=== PATIENT | female | born 1975 | race Caucasian/White ===

== ENCOUNTER 2017-05-27 10:44 | Inpatient (IN) | payer OTHER ==
[~2017-05-27] VITALS: Ht 177.8 cm; Wt 70.3 kg
[~2017-05-27 10:44] MED LIST: BACLOFEN 10MG T10 M1 PO; CIPRO250 M1; CLONAZEPAM 1 MG1 M1; CYCLOBENZAPRINE; CYMBALTA20 MG; DEPAKOTE250 MG; EFFEXOR 5050 MG/1 T1; ESTRACE0.5 MG; FLOMAX PO; HYDROXYZINE HCL10 M1 PO; OMEPRAZOLE 20 M20 M1; OXYCONTIN10 M1 PO; OXYCONTIN30 MG PO; PERCOCET 5-3251 EACH PO; PHENERGAN 25 MG25 M1 PO; PROMETHAZINE12.5 M1; REMERON15 MG PO; SEROQUEL 25 MG25 MG PO; SEROQUEL200 MG PO; XANAX 0.5 MG0.5 MG PO; ZOFRAN4 MG
[2017-05-27 10:48] VITALS: BP 125/85
[2017-05-27 11:12] LABS: URINE BILIRUBIN NEGATIVE (Negative); URINE BLOOD 2+ (Negative); URINE CLARITY CLEAR; URINE COLOR YELLOW; URINE GLUCOSE-RANDOM* NEGATIVE (Negative); URINE KETONES NEGATIVE (Negative); URINE LEUKOCYTES NEGATIVE (Negative); URINE NITRITE NEGATIVE (Negative); URINE PROTEIN (DIPSTICK) NEGATIVE (Negative); URINE UROBILINOGEN 0.2 E.U./dl (0.2-1.0)
[2017-05-27 11:18] LABS: BACTERIA 1-9 Few /HPF (None Seen); CASTS None Seen /LPF (None Seen); CRYSTALS None Seen /LPF (None Seen); SQUAMOUS 0-3 Few /LPF (0-3); URINE RBC 3-10 Few /HPF (0-2); URINE WBC 0-5 Rare /HPF (0-5)
[2017-05-27 11:21] LABS: HEMATOCRIT 44.7 % (37.0-47.0); HEMOGLOBIN 15.2 gm/dL (12.0-15.0); MCH 32.6 pg (26.0-34.0); MCV 95.9 fL (80.0-100.0); RBC 4.66 mil/uL (4.20-5.00); RDW 12.7 % (10.5-14.5); WBC 4.3 thou/uL (4.0-11.0)
[2017-05-27 11:35] LABS: CALCIUM 9.3 mg/dL (8.5-10.1); CREATININE 0.8 mg/dL (0.6-1.0); POTASSIUM 4.3 mmol/L (3.5-5.1)
[2017-05-27 11:40] LABS: ALBUMIN 3.7 g/dL (3.4-5.0); TOTAL BILIRUBIN 0.8 mg/dL (<0.1-1.0); TOTAL PROTEIN 7.3 g/dL (6.4-8.2)
[2017-05-27] MEDS ORDERED: EFFEXOR XR75 MG PO (12:06)
[2017-05-27 17:56] VITALS: BP 125/63
[2017-05-27 18:10] VITALS: BP 119/72
[2017-05-27 18:30] VITALS: BP 123/64
[2017-05-27 19:12] VITALS: BP 114/66
[2017-05-27] MEDS ORDERED: CLONAZEPAM 1 MG1 M1 PO (20:38)
[2017-05-28 03:15] VITALS: BP 109/64
[2017-05-28 06:44] LABS: HEMATOCRIT 38.3 % (37.0-47.0); MCH 32.9 pg (26.0-34.0); MCHC 33.7 g/dL (28.0-37.0); MCV 97.4 fL (80.0-100.0); RBC 3.93 mil/uL (4.20-5.00); RDW 12.8 % (10.5-14.5); WBC 3.7 thou/uL (4.0-11.0)
[2017-05-28 06:49] LABS: HEMOGLOBIN 12.9 gm/dL (12.0-15.0)
[2017-05-28 06:57] LABS: CALCIUM 8.8 mg/dL (8.5-10.1); CREATININE 1.1 mg/dL (0.6-1.0)
[2017-05-28 07:14] VITALS: BP 93/52
[2017-05-28 15:30] VITALS: BP 115/60
[2017-05-28 20:00] VITALS: BP 97/56
[2017-05-29 04:04] VITALS: BP 99/56
[2017-05-29 07:20] VITALS: BP 92/52
[2017-05-29 08:24] VITALS: BP 99/56
[2017-05-29 15:30] VITALS: BP 117/64
[2017-05-29 20:00] VITALS: BP 112/64
[2017-05-30 05:25] VITALS: BP 167/92
[2017-05-30 05:26] VITALS: BP 107/65
[2017-05-30 06:21] LABS: CALCIUM 8.2 mg/dL (8.5-10.1); CREATININE 0.9 mg/dL (0.6-1.0); POTASSIUM 4.7 mmol/L (3.5-5.1)
[2017-05-30 08:39] VITALS: BP 107/65
[2017-05-30 08:46] VITALS: BP 108/72
[2017-05-30 20:00] VITALS: BP 116/67
[2017-05-31 04:09] VITALS: BP 99/49
[2017-05-31 08:05] VITALS: BP 128/78
[2017-05-31 15:00] VITALS: BP 109/54
[2017-05-31 17:20] VITALS: BP 111/60
[2017-05-31 19:05] VITALS: BP 106/62
[2017-06-01 06:13] VITALS: BP 104/60
[2017-06-01 11:03] VITALS: BP 98/56
[2017-06-01 12:12] LABS: HEMATOCRIT 37.2 % (37.0-47.0); HEMOGLOBIN 12.9 gm/dL (12.0-15.0); MCH 33.1 pg (26.0-34.0); MCHC 34.6 g/dL (28.0-37.0); MCV 95.7 fL (80.0-100.0); RBC 3.89 mil/uL (4.20-5.00); RDW 12.4 % (10.5-14.5); WBC 3.2 thou/uL (4.0-11.0)
[2017-06-01 12:22] LABS: CALCIUM 9.3 mg/dL (8.5-10.1); MAGNESIUM 1.8 mg/dL (1.8-2.4); POTASSIUM 4.7 mmol/L (3.5-5.1)
[2017-06-01 14:55] VITALS: BP 97/60
[2017-06-01 20:30] VITALS: BP 101/49
[2017-06-02 05:00] VITALS: BP 93/46
[2017-06-02 06:22] LABS: HEMATOCRIT 37.6 % (37.0-47.0); HEMOGLOBIN 12.6 gm/dL (12.0-15.0); MCH 32.4 pg (26.0-34.0); MCHC 33.5 g/dL (28.0-37.0); MCV 96.8 fL (80.0-100.0); RBC 3.89 mil/uL (4.20-5.00); RDW 12.5 % (10.5-14.5); WBC 3.8 thou/uL (4.0-11.0)
[2017-06-02 06:34] LABS: CALCIUM 8.9 mg/dL (8.5-10.1); CREATININE 1.1 mg/dL (0.6-1.0); MAGNESIUM 1.7 mg/dL (1.8-2.4); POTASSIUM 4.7 mmol/L (3.5-5.1)
[2017-06-02 08:00] VITALS: BP 95/50
[2017-06-02] MEDS ORDERED: FLOMAX0.4 MG PO (15:59)
[2017-06-02 16:00] VITALS: BP 95/52
[2017-06-02] MEDS ORDERED: PERCOCET PO (16:00)
[2017-06-02 16:30] VITALS: BP 95/52
[2017-06-02 19:05] VITALS: BP 109/59
[2017-06-03 03:55] VITALS: BP 93/51
[2017-06-03 06:06] LABS: HEMATOCRIT 35.8 % (37.0-47.0); HEMOGLOBIN 12.1 gm/dL (12.0-15.0); MCH 32.7 pg (26.0-34.0); MCHC 33.7 g/dL (28.0-37.0); MCV 96.9 fL (80.0-100.0); RBC 3.7 mil/uL (4.20-5.00); RDW 12.8 % (10.5-14.5); WBC 3.6 thou/uL (4.0-11.0)
[2017-06-03 06:24] LABS: CALCIUM 8.7 mg/dL (8.5-10.1); CREATININE 1.2 mg/dL (0.6-1.0); POTASSIUM 5.1 mmol/L (3.5-5.1)
[2017-06-03 15:00] VITALS: BP 91/42
[2017-06-03 19:09] VITALS: BP 95/54
[2017-06-04 03:34] VITALS: BP 99/54
[2017-06-04 05:48] LABS: HEMATOCRIT 34.5 % (37.0-47.0); HEMOGLOBIN 11.7 gm/dL (12.0-15.0); MCH 33.1 pg (26.0-34.0); MCHC 33.9 g/dL (28.0-37.0); MCV 97.6 fL (80.0-100.0); RBC 3.53 mil/uL (4.20-5.00); RDW 12.8 % (10.5-14.5); WBC 4.1 thou/uL (4.0-11.0)
[2017-06-04 06:01] LABS: CALCIUM 8.5 mg/dL (8.5-10.1); CREATININE 1.2 mg/dL (0.6-1.0); MAGNESIUM 1.8 mg/dL (1.8-2.4); POTASSIUM 4.3 mmol/L (3.5-5.1)
[2017-06-04 06:35] VITALS: BP 98/61
[2017-06-04 07:15] VITALS: BP 94/53
[2017-06-04 15:30] VITALS: BP 95/52
== END 2017-06-04 17:09 | DRG 694 ==
LOC: ER 10:44 → 4E 14:43 → EROBS 14:43 → 4E 18:08
PROVIDERS: Hospitalist; Internal Medicine; Physician Assistant; Radiology Vascular & Interventional Radiology
PROC: 0T9430Z Drainage of Left Kidney Pelvis with Drainage Device, Percutaneous Approach (ICD-10-PCS; principal; 2017-05-29)
DX: N13.2 Hydronephrosis with renal and ureteral calculous obstruction (principal); J98.11 Atelectasis; F41.9 Anxiety disorder, unspecified; F31.9 Bipolar disorder, unspecified; R33.9 Retention of urine, unspecified; F43.10 Post-traumatic stress disorder, unspecified; Z90.710 Acquired absence of both cervix and uterus; Z79.899 Other long term (current) drug therapy; Z88.1 Allergy status to other antibiotic agents; Z88.2 Allergy status to sulfonamides; Z88.8 Allergy status to other drugs, medicaments and biological substances
CPT/HCPCS: 10084

== ENCOUNTER 2017-06-22 19:14 | Inpatient (IN) | payer OTHER ==
[~2017-06-22] VITALS: Ht 177.8 cm; Wt 75.8 kg
--- NOTE | ~2017-06-22 | HC ---
[facility] [place] [address] CONSULTATION Name: LORENZO VICKERS Room #: 402-P [facility] IN ..#: [id number] Admission: 06/22/17 Attend Phys: Migue Wilkerson Discharge: 06/28/17 Date of : 75 Report #: [id number] THIS REPORT FOR: //name// CC: DASH physician/PCP Anthony Morelos DATE OF SERVICE: 06/23/2017 HISTORY OF PRESENT ILLNESS: The patient is a 41-year-old female who presents with acute onset of left flank pain. She states the pain has been there for quite some time, but over the past week, it has gotten significantly worse to the point that she was not able to tolerate it at home despite taking oral pain medications. She states she has had multiple stones in the past, none of which would pass spontaneously, all of which required intervention. She had a left nephrostomy tube placed several weeks ago for a left hydronephrosis. She states she has had some sort of left ureteral surgery, but is unsure of what type of procedure she had done. She has also had dysuria, urgency or frequency. She states she voids every hour with nocturia x 3. She has some hesitancy and dribbling. She has not had any fever or chills. She has not noted any hematuria. She felt that her nephrostomy tube was draining. PAST MEDICAL HISTORY: Medical illnesses, bipolar disorder, history of stones, history of recurrent urinary tract infections. ALLERGIES: CLINDAMYCIN, REGLAN, AUGMENTIN, SULFA, LORTAB, DEMEROL, COMPAZINE. FAMILY HISTORY, SOCIAL HISTORY AND REVIEW OF SYSTEMS: Per the chart. PHYSICAL EXAMINATION: ABDOMEN: Soft. There is no left flank tenderness. She has a left nephrostomy tube in place. LABORATORY DATA: Her urine shows 3-10 red cells, 16-25 white cells, moderate bacteria. She has negative nitrites. Her white count is 6.5, creatinine is 0.8. ASSESSMENT AND PLAN: 1. Left flank pain. We will plan to get a left antegrade nephrostogram to see if the patient has any obstruction. If she does not have any obstruction, she would like to have her nephrostomy tube removed. 2. Recurrent urinary tract infection. The patient has a urine culture pending. She is on ceftriaxone pending the results of the culture. [address] [address] CONSULTATION Name: LORENZO VICKERS Room #: 402-P [facility] IN M.R.#: [id number] Admission: 06/22/17 Attend Phys: Migue Wilkerson Discharge: 06/28/17 Date of : 75 Report #: [id number] 3. Incomplete bladder emptying. We will check a postvoid BVI. The patient is on Flomax 0.4 mg daily. <ELECTRONICALLY SIGNED> By: Toño Pickering MD 08/24/17 0943 0839 1 Toño Pickering MD /isabella
[~2017-06-22 19:14] MED LIST changes: +CLONAZEPAM 1 MG1 M1 PO; +EFFEXOR XR75 MG PO; +FLOMAX0.4 MG PO; +PERCOCET PO
[2017-06-22 19:42] LABS: URINE BILIRUBIN NEGATIVE (Negative); URINE BLOOD 2+ (Negative); URINE CLARITY SL CLOUDY; URINE COLOR YELLOW; URINE GLUCOSE-RANDOM* NEGATIVE (Negative); URINE KETONES NEGATIVE (Negative); URINE NITRITE-REFLEX NEGATIVE (Negative); URINE PROTEIN (DIPSTICK) NEGATIVE (Negative); URINE SPECIFIC GRAVITY 1.025 (1.005-1.035); URINE UROBILINOGEN 0.2 E.U./dl (0.2-1.0)
[2017-06-22 19:48] LABS: URINE LEUKOCYTES-REFLEX TRACE (Negative)
[2017-06-22 20:06] VITALS: BP 119/62
[2017-06-22 20:17] LABS: SQUAMOUS 4-10 Moderate /LPF (0-3)
[2017-06-22 20:18] LABS: URINE RBC 3-10 Few /HPF (0-2)
[2017-06-22 20:19] LABS: CASTS None Seen /LPF (None Seen); CRYSTALS None Seen /LPF (None Seen); MUCUS 0-3 Light strn/LPF (None Seen)
[2017-06-22 20:47] LABS: ABSOLUTE NEUTROPHILS 2.8 thou/uL (1.4-8.2); BASOPHILS 0.7 % (0.0-2.0); HEMATOCRIT 42.8 % (37.0-47.0); HEMOGLOBIN 14.3 gm/dL (12.0-15.0); MCHC 33.4 g/dL (28.0-37.0); MCV 95.8 fL (80.0-100.0); MONOCYTES 8.3 % (1.0-8.0); PLATELET COUNT 104 thou/uL (150-400); RBC 4.47 mil/uL (4.20-5.00); RDW 13.3 % (10.5-14.5); WBC 6.5 thou/uL (4.0-11.0)
[2017-06-22 20:52] LABS: CALCIUM 8.7 mg/dL (8.5-10.1); CREATININE 0.8 mg/dL (0.6-1.0); POTASSIUM 3.8 mmol/L (3.5-5.1)
[2017-06-22 20:58] LABS: ALBUMIN 3.5 g/dL (3.4-5.0); TOTAL BILIRUBIN 0.4 mg/dL (<0.1-1.0)
[2017-06-22 22:58] VITALS: BP 119/62
[2017-06-22 23:04] VITALS: BP 119/62
[2017-06-22 23:30] VITALS: BP 116/65
[2017-06-23 03:50] LABS: CALCIUM 8.6 mg/dL (8.5-10.1); CREATININE 0.9 mg/dL (0.6-1.0)
[2017-06-23 04:24] VITALS: BP 94/55
[2017-06-23 05:19] LABS: HEMATOCRIT 38.2 % (37.0-47.0); HEMOGLOBIN 13.1 gm/dL (12.0-15.0); MCH 32.8 pg (26.0-34.0); MCHC 34.3 g/dL (28.0-37.0); MCV 95.7 fL (80.0-100.0); RBC 3.99 mil/uL (4.20-5.00); RDW 13.4 % (10.5-14.5); WBC 7.7 thou/uL (4.0-11.0)
[2017-06-23 16:46] VITALS: BP 101/67
[2017-06-23 19:15] VITALS: BP 104/46
[2017-06-24 04:09] VITALS: BP 111/49
[2017-06-24 05:05] LABS: HEMATOCRIT 37.1 % (37.0-47.0); HEMOGLOBIN 12.5 gm/dL (12.0-15.0); MCHC 33.7 g/dL (28.0-37.0); RBC 3.91 mil/uL (4.20-5.00); RDW 13.1 % (10.5-14.5); WBC 6.4 thou/uL (4.0-11.0)
[2017-06-24 05:17] LABS: ALBUMIN 3.4 g/dL (3.4-5.0); CALCIUM 8.8 mg/dL (8.5-10.1); CREATININE 0.8 mg/dL (0.6-1.0); PHOSPHORUS 4.8 mg/dL (2.5-4.9); POTASSIUM 3.8 mmol/L (3.5-5.1)
[2017-06-24 07:17] VITALS: BP 111/49
[2017-06-24 09:36] VITALS: BP 109/41
[2017-06-24 15:27] VITALS: BP 111/62
[2017-06-24 20:27] VITALS: BP 115/49
[2017-06-25 04:07] VITALS: BP 98/34
[2017-06-25 09:46] VITALS: BP 116/68
[2017-06-25 11:03] VITALS: BP 116/68
[2017-06-25 17:45] VITALS: BP 116/61
[2017-06-25 19:11] VITALS: BP 100/44
[2017-06-26] VITALS (9 sets, daily range): BP systolic 78–97; BP diastolic 40–57
[2017-06-27 04:34] VITALS: BP 110/44
[2017-06-27] MEDS ORDERED: CEFDINIR300 MG PO (07:26)
[2017-06-27] MEDS ORDERED: CLONAZEPAM 1 MG1 M1 PO (07:27)
[2017-06-27] MEDS ORDERED: OXYCODONE HCL10 MG PO (07:27)
[2017-06-27] MEDS ORDERED: SEROQUEL 25 MG25 MG PO (07:27)
[2017-06-27 08:43] VITALS: BP 95/57
[2017-06-27 16:42] VITALS: BP 111/66
[2017-06-27 19:22] VITALS: BP 103/54
[2017-06-28 05:00] VITALS: BP 108/53
[2017-06-28 07:11] VITALS: BP 95/50
[2017-06-28 15:09] VITALS: BP 101/53
== END 2017-06-28 18:00 | DRG 689 ==
LOC: ER 19:14 → 4N 22:05 → EROBS 22:05 → 4N 23:22
PROVIDERS: Emergency Medicine; Hospitalist; Nurse Practitioner Family
PROC: BT121ZZ Fluoroscopy of Left Kidney using Low Osmolar Contrast (ICD-10-PCS; principal; 2017-06-24)
PROC: 0TP5X0Z Removal of Drainage Device from Kidney, External Approach (ICD-10-PCS; 2017-06-26)
DX: N12 Tubulo-interstitial nephritis, not specified as acute or chronic (principal); K85.90 Acute pancreatitis without necrosis or infection, unspecified; F41.9 Anxiety disorder, unspecified; F31.9 Bipolar disorder, unspecified; G89.4 Chronic pain syndrome; F43.10 Post-traumatic stress disorder, unspecified; M19.90 Unspecified osteoarthritis, unspecified site; M54.30 Sciatica, unspecified side; Z79.899 Other long term (current) drug therapy; Z87.442 Personal history of urinary calculi; Z88.1 Allergy status to other antibiotic agents; Z90.710 Acquired absence of both cervix and uterus; Z88.2 Allergy status to sulfonamides; Z88.8 Allergy status to other drugs, medicaments and biological substances; Z86.718 Personal history of other venous thrombosis and embolism
CPT/HCPCS: 10091

== ENCOUNTER 2017-08-03 03:22 | Emergency (ER) | payer OTHER ==
[~2017-08-03] VITALS: Ht 180.3 cm; Wt 71.7 kg
[~2017-08-03 03:22] MED LIST changes: +CEFDINIR300 MG PO; +OXYCODONE HCL10 MG PO
[2017-08-03 04:04] LABS: ABSOLUTE NEUTROPHILS 3.5 thou/uL (1.4-8.2); BASOPHILS 0.7 % (0.0-2.0); EOSINOPHILS 1.8 % (0.0-3.0); HEMATOCRIT 37.8 % (37.0-47.0); HEMOGLOBIN 13.1 gm/dL (12.0-15.0); LYMPHOCYTES 40.3 % (24.0-44.0); MCH 33.1 pg (26.0-34.0); MCHC 34.6 g/dL (28.0-37.0); MCV 95.8 fL (80.0-100.0); MONOCYTES 5.8 % (1.0-8.0); PLATELET COUNT 181 thou/uL (150-400); POLYS 51.4 % (36.0-66.0); RBC 3.95 mil/uL (4.20-5.00); WBC 6.8 thou/uL (4.0-11.0)
[2017-08-03 04:05] LABS: URINE BILIRUBIN NEGATIVE (Negative); URINE BLOOD NEGATIVE (Negative); URINE CLARITY CLEAR; URINE COLOR YELLOW; URINE GLUCOSE-RANDOM* NEGATIVE (Negative); URINE KETONES NEGATIVE (Negative); URINE LEUKOCYTES-REFLEX NEGATIVE (Negative); URINE NITRITE-REFLEX NEGATIVE (Negative); URINE PROTEIN (DIPSTICK) NEGATIVE (Negative); URINE UROBILINOGEN 0.2 E.U./dl (0.2-1.0)
[2017-08-03 04:48] LABS: CALCIUM 8.6 mg/dL (8.5-10.1); CREATININE 0.9 mg/dL (0.6-1.0); POTASSIUM 3.9 mmol/L (3.5-5.1)
[2017-08-03] MEDS ORDERED: ZOFRAN ODT4 MG PO (05:32)
[2017-08-03] MEDS ORDERED: MOBIC15 MG PO (05:33)
[2017-08-03 07:10] VITALS: BP 105/65
== END 2017-08-03 07:12 | disposition home or self-care (01) ==
LOC: ER 03:22
PROVIDERS: Emergency Medicine
DX: R10.9 Unspecified abdominal pain (principal); R11.2 Nausea with vomiting, unspecified; M79.7 Fibromyalgia; Z86.718 Personal history of other venous thrombosis and embolism; Z88.1 Allergy status to other antibiotic agents; Z88.2 Allergy status to sulfonamides; Z88.5 Allergy status to narcotic agent

== ENCOUNTER 2017-11-09 13:14 | Emergency (ER) | payer OTHER ==
[~2017-11-09] VITALS: Ht 177.8 cm; Wt 68.0 kg
[~2017-11-09 13:14] MED LIST changes: +MOBIC15 MG PO; +ZOFRAN ODT4 MG PO
[2017-11-09 13:46] LABS: ABSOLUTE NEUTROPHILS 8.8 thou/uL (1.4-8.2); BASOPHILS 0.5 % (0.0-2.0); EOSINOPHILS 0.4 % (0.0-3.0); HEMATOCRIT 44.4 % (37.0-47.0); HEMOGLOBIN 15.4 gm/dL (12.0-15.0); LYMPHOCYTES 17.8 % (24.0-44.0); MCH 32.3 pg (26.0-34.0); MCHC 34.8 g/dL (28.0-37.0); MCV 92.8 fL (80.0-100.0); MONOCYTES 4.8 % (1.0-8.0); PLATELET COUNT 213 thou/uL (150-400); POLYS 76.5 % (36.0-66.0); RBC 4.78 mil/uL (4.20-5.00); RDW 13.4 % (10.5-14.5); WBC 11.5 thou/uL (4.0-11.0)
[2017-11-09 13:56] LABS: CALCIUM 10.1 mg/dL (8.5-10.1); POTASSIUM 3.2 mmol/L (3.5-5.1)
[2017-11-09 14:02] LABS: ALBUMIN 4.3 g/dL (3.4-5.0); DIRECT BILIRUBIN 0.2 mg/dL (<0.1-0.3); TOTAL BILIRUBIN 0.8 mg/dL (<0.1-1.0); TOTAL PROTEIN 8.2 g/dL (6.4-8.2)
[2017-11-09] MEDS ORDERED: POTASSIUM20 PO (14:26)
== END 2017-11-09 15:15 | disposition home or self-care (01) ==
LOC: ER 13:14
PROVIDERS: Emergency Medicine
DX: F12.988 Cannabis use, unspecified with other cannabis-induced disorder (principal); E87.6 Hypokalemia; R11.2 Nausea with vomiting, unspecified; R10.9 Unspecified abdominal pain

== ENCOUNTER 2017-11-11 12:55 | Emergency (ER) | payer OTHER ==
[~2017-11-11] VITALS: Ht 177.8 cm; Wt 72.6 kg
[~2017-11-11 12:55] MED LIST changes: +POTASSIUM20 PO
[2017-11-11 14:00] LABS: URINE BLOOD 2+ (Negative); URINE CLARITY CLEAR; URINE COLOR YELLOW; URINE GLUCOSE-RANDOM* NEGATIVE (Negative); URINE KETONES 1+ (Negative); URINE LEUKOCYTES-REFLEX NEGATIVE (Negative); URINE NITRITE-REFLEX NEGATIVE (Negative); URINE PROTEIN (DIPSTICK) NEGATIVE (Negative); URINE SPECIFIC GRAVITY 1.025 (1.005-1.035)
[2017-11-11 14:01] LABS: ICTOTEST (BILI CONFIRMATORY) Negative (Negative); URINE BILIRUBIN NEGATIVE (Negative)
[2017-11-11 14:01] LABS: BASOPHILS 0.5 % (0.0-2.0); EOSINOPHILS 0.2 % (0.0-3.0); HEMATOCRIT 43.7 % (37.0-47.0); LYMPHOCYTES 24.4 % (24.0-44.0); MCH 31.8 pg (26.0-34.0); MCHC 34.4 g/dL (28.0-37.0); MCV 92.4 fL (80.0-100.0); MONOCYTES 6.3 % (1.0-8.0); PLATELET COUNT 184 thou/uL (150-400); POLYS 68.6 % (36.0-66.0); RBC 4.73 mil/uL (4.20-5.00); RDW 13.4 % (10.5-14.5); WBC 5.8 thou/uL (4.0-11.0)
[2017-11-11 14:09] LABS: SQUAMOUS 4-10 Moderate /LPF (0-3)
[2017-11-11 14:10] LABS: BACTERIA-REFLEX 1-9 Few /HPF (None Seen); CASTS None Seen /LPF (None Seen); CRYSTALS None Seen /LPF (None Seen); URINE RBC 3-10 Few /HPF (0-2); URINE WBC-REFLEX 0-5 Rare /HPF (0-5)
[2017-11-11 14:14] LABS: CALCIUM 9.5 mg/dL (8.5-10.1); CREATININE 0.9 mg/dL (0.6-1.0); POTASSIUM 3.5 mmol/L (3.5-5.1)
[2017-11-11 14:16] LABS: AMP/METHAMP Negative (Negative); BARBITURATES Negative (Negative); BENZODIAZEPINES POSITIVE (Negative); COCAINE Negative (Negative); METHADONE Negative (Negative); OPIATES Negative (Negative); PCP Negative (Negative)
[2017-11-11 14:20] LABS: TOTAL BILIRUBIN 1.2 mg/dL (<0.1-1.0); TOTAL PROTEIN 7.8 g/dL (6.4-8.2)
[2017-11-11] MEDS ORDERED: TRAMADOL 50 MG50 MG PO (15:55)
[2017-11-11] MEDS ORDERED: ONDANSETRON HCL4 M2 PO (15:55)
[2017-11-11] MEDS ORDERED: XANAX1 MG PO ×2 (21:32→21:49)
[2017-11-11] MEDS ORDERED: OXYCONTIN15 MG PO (21:34)
== END 2017-11-11 17:20 | disposition home or self-care (01) ==
LOC: ER 12:55
PROVIDERS: Nurse Practitioner Family
DX: R10.9 Unspecified abdominal pain (principal); R11.2 Nausea with vomiting, unspecified; F41.9 Anxiety disorder, unspecified; F31.9 Bipolar disorder, unspecified; M79.7 Fibromyalgia; M54.30 Sciatica, unspecified side; Z86.718 Personal history of other venous thrombosis and embolism; Z88.1 Allergy status to other antibiotic agents; Z88.2 Allergy status to sulfonamides; Z88.8 Allergy status to other drugs, medicaments and biological substances

== ENCOUNTER 2017-11-11 18:41 | Inpatient (IN) | payer OTHER ==
[~2017-11-11] VITALS: Ht 177.8 cm; Wt 71.3 kg
--- NOTE | ~2017-11-11 | HC ---
[facility] [place] [address] [place] [address] CONSULTATION Name: LORENZO VICKERS Room #: 426-P [facility] IN M.R.#: [id number] Admission: 11/11/17 Attend Phys: Anthony Morelos MD Discharge: 11/15/17 Date of : 75 Report #: [id number] THIS REPORT FOR: //name// CC: DASH physician/PCP Anthony Morelos CHIEF COMPLAINT: Left flank pain. HISTORY OF PRESENT ILLNESS: The patient is a 42-year-old woman who is being seen today at the request of Dr. Duff for evaluation and management of left flank pain. She has undergone left renal ureteral surgery in the distant past and has chronic left-sided dilation. She presents with a 2-week history of left flank pain. She had a similar episode earlier this year and had a nephrostomy tube placed. Pain was still present and nephrostomy, nephrostogram documented patency. ALLERGIES: INCLUDE CLINDAMYCIN, REGLAN, AUGMENTIN, SULFA, HYDROCODONE, DEMEROL, COMPAZINE. ILLNESSES: Include abdominal pain, bipolar disorder, cannabis hyperemesis syndrome, difficulty voiding, fibromyalgia, chronic pain syndrome, anxiety. PAST SURGICAL HISTORY: Includes a left kidney reconstructive surgery, left nephrostomy tube placement. HOME MEDICATIONS: Include tramadol, potassium chloride, Seroquel, tamsulosin, Zofran. SOCIAL HISTORY: Nonsmoker. She does not drink. REVIEW OF SYSTEMS: She denies shortness of breath or chest pain. Reports some difficulties voiding. PHYSICAL EXAMINATION: GENERAL: She is sitting up in bed. VITAL SIGNS: Temperature is 36.6, pulse 70, respirations 16, blood pressure 97/73. ABDOMEN: Soft without masses. No peritoneal signs, although she does complain of pain with deep palpation. LABORATORY DATA: White count 5.4 thousand, hemoglobin 13.8, hematocrit 40.8, platelets are 171,000. Sodium 143, potassium 3.2, chloride 107, CO2 of 30, BUN 12, creatinine 1.0, glucose 78, calcium is 9.2. CT scan shows a mild left renal pelvocaliectasis with an unchanged left proximal ureteral stone at L4. Of note, the ureter was also dilated below this stone. She had a pelvocaliectasis dates back to 2011. [address] [address] CONSULTATION Name: LORENZO VICKERS Room #: 426-P [facility] IN [facility].#: [id number] Admission: 11/11/17 Attend Phys: Anthony Morelos MD Discharge: 11/15/17 Date of : 75 Report #: [id number] IMPRESSION: Left flank pain, etiology is uncertain. PLAN: I would recommend a Lasix renal scan. I would not recommend any active surgical intervention at the present time. We will reassess after Lasix renal scan. <ELECTRONICALLY SIGNED> By: Ludwin Dunaway MD 11/16/17 0847 [id number] MD cornelio Morales
[~2017-11-11 18:41] MED LIST changes: +ONDANSETRON HCL4 M2 PO; +TRAMADOL 50 MG50 MG PO
[2017-11-11 19:03] VITALS: BP 127/61
[2017-11-11 19:55] VITALS: BP 127/61
[2017-11-11 21:01] VITALS: BP 97/61
[2017-11-11 21:15] VITALS: BP 124/69
[2017-11-11] MEDS ORDERED: XANAX1 MG PO ×2 (21:32→21:49)
[2017-11-11] MEDS ORDERED: OXYCONTIN15 MG PO (21:34)
[2017-11-12 04:06] VITALS: BP 92/55
[2017-11-12 06:09] LABS: HEMATOCRIT 40.8 % (37.0-47.0); HEMOGLOBIN 13.8 gm/dL (12.0-15.0); MCH 31.6 pg (26.0-34.0); MCHC 33.8 g/dL (28.0-37.0); MCV 93.6 fL (80.0-100.0); RBC 4.36 mil/uL (4.20-5.00); RDW 13.3 % (10.5-14.5); WBC 5.4 thou/uL (4.0-11.0)
[2017-11-12 06:32] LABS: CALCIUM 9.2 mg/dL (8.5-10.1); POTASSIUM 3.2 mmol/L (3.5-5.1)
[2017-11-12 07:08] VITALS: BP 97/53
[2017-11-12 16:36] VITALS: BP 105/66
[2017-11-12 19:19] VITALS: BP 101/53
[2017-11-13 00:56] LABS: URINE BILIRUBIN NEGATIVE (Negative); URINE BLOOD NEGATIVE (Negative); URINE CLARITY CLEAR; URINE COLOR YELLOW; URINE GLUCOSE-RANDOM* NEGATIVE (Negative); URINE KETONES NEGATIVE (Negative); URINE LEUKOCYTES-REFLEX NEGATIVE (Negative); URINE NITRITE-REFLEX NEGATIVE (Negative); URINE PROTEIN (DIPSTICK) NEGATIVE (Negative); URINE SPECIFIC GRAVITY 1.015 (1.005-1.035); URINE UROBILINOGEN 0.2 E.U./dl (0.2-1.0)
[2017-11-13 03:27] VITALS: BP 100/45
[2017-11-13 20:34] VITALS: BP 89/47
[2017-11-14 05:19] VITALS: BP 88/47
[2017-11-14 05:39] LABS: ABSOLUTE NEUTROPHILS 1.3 thou/uL (1.4-8.2); BASOPHILS 0.7 % (0.0-2.0); EOSINOPHILS 0.9 % (0.0-3.0); MCH 32.5 pg (26.0-34.0); MCHC 34.8 g/dL (28.0-37.0); MCV 93.4 fL (80.0-100.0); MONOCYTES 7.2 % (1.0-8.0); PLATELET COUNT 131 thou/uL (150-400); POLYS 36.2 % (36.0-66.0); RBC 3.64 mil/uL (4.20-5.00); RDW 13.4 % (10.5-14.5); WBC 3.7 thou/uL (4.0-11.0)
[2017-11-14 05:42] LABS: HEMOGLOBIN 11.8 gm/dL (12.0-15.0)
[2017-11-14 05:58] LABS: CALCIUM 7.9 mg/dL (8.5-10.1); CREATININE 0.9 mg/dL (0.6-1.0); POTASSIUM 3.6 mmol/L (3.5-5.1)
[2017-11-14 06:54] VITALS: BP 108/61
[2017-11-14 15:17] VITALS: BP 106/62
[2017-11-14 15:21] VITALS: BP 131/78
[2017-11-14 20:59] VITALS: BP 108/56
[2017-11-14 21:50] VITALS: BP 126/61
[2017-11-15 04:24] VITALS: BP 108/58
[2017-11-15 07:15] VITALS: BP 100/60
[2017-11-15] MEDS ORDERED: OXYCONTIN15 MG PO (14:07)
[2017-11-15] MEDS ORDERED: PERCOCET PO (14:07)
[2017-11-15 15:00] VITALS: BP 119/70
[2017-11-15 15:29] VITALS: BP 119/70
== END 2017-11-15 18:27 | disposition home or self-care (01) | DRG 694 ==
LOC: ER 18:41 → EROBS 19:20 → 4E 19:20
PROVIDERS: Internal Medicine Geriatric Medicine; Nurse Practitioner Family; Specialist
DX: N20.1 Calculus of ureter (principal); F41.9 Anxiety disorder, unspecified; F31.9 Bipolar disorder, unspecified; F43.10 Post-traumatic stress disorder, unspecified; M79.7 Fibromyalgia; R33.9 Retention of urine, unspecified; G89.4 Chronic pain syndrome; M19.90 Unspecified osteoarthritis, unspecified site; Z90.710 Acquired absence of both cervix and uterus; Z86.718 Personal history of other venous thrombosis and embolism; Z87.442 Personal history of urinary calculi; Q27.1 Congenital renal artery stenosis; Z93.6 Other artificial openings of urinary tract status; Z87.828 Personal history of other (healed) physical injury and trauma; Z79.899 Other long term (current) drug therapy; Z88.1 Allergy status to other antibiotic agents; Z88.2 Allergy status to sulfonamides; Z88.8 Allergy status to other drugs, medicaments and biological substances
CPT/HCPCS: 10084

== ENCOUNTER 2018-03-20 18:21 | Emergency (ER) | payer OTHER ==
[~2018-03-20] VITALS: Ht 177.8 cm; Wt 68.0 kg
[~2018-03-20 18:21] MED LIST changes: +OXYCONTIN15 MG PO; +XANAX1 MG PO
[2018-03-20 19:14] LABS: ABSOLUTE NEUTROPHILS 5.7 thou/uL (1.4-8.2); BASOPHILS 0.6 % (0.0-2.0); EOSINOPHILS 0.2 % (0.0-3.0); HEMATOCRIT 43.8 % (37.0-47.0); HEMOGLOBIN 15.3 gm/dL (12.0-15.0); LYMPHOCYTES 25.1 % (24.0-44.0); MCH 33.2 pg (26.0-34.0); MCHC 34.9 g/dL (28.0-37.0); MCV 95.3 fL (80.0-100.0); MONOCYTES 8.5 % (1.0-8.0); PLATELET COUNT 184 thou/uL (150-400); POLYS 65.6 % (36.0-66.0); RDW 13.7 % (10.5-14.5); WBC 8.8 thou/uL (4.0-11.0)
[2018-03-20 19:16] LABS: URINE BILIRUBIN NEGATIVE (Negative); URINE BLOOD 1+ (Negative); URINE CLARITY CLEAR; URINE COLOR YELLOW; URINE GLUCOSE-RANDOM* NEGATIVE (Negative); URINE KETONES NEGATIVE (Negative); URINE LEUKOCYTES-REFLEX 1+ (Negative); URINE NITRITE-REFLEX NEGATIVE (Negative); URINE PROTEIN (DIPSTICK) TRACE (Negative); URINE UROBILINOGEN 0.2 E.U./dl (0.2-1.0)
[2018-03-20 19:17] LABS: CALCIUM 9.2 mg/dL (8.5-10.1); POTASSIUM 3.8 mmol/L (3.5-5.1)
[2018-03-20 19:23] LABS: ALBUMIN 3.7 g/dL (3.4-5.0); DIRECT BILIRUBIN 0.1 mg/dL (<0.1-0.3); TOTAL BILIRUBIN 0.6 mg/dL (<0.1-1.0); TOTAL PROTEIN 7.5 g/dL (6.4-8.2)
[2018-03-20 19:27] LABS: BACTERIA-REFLEX 1-9 Few /HPF (None Seen); CASTS None Seen /LPF (None Seen); CRYSTALS None Seen /LPF (None Seen); MUCUS >6 Heavy strn/LPF (None Seen); SQUAMOUS >10 Many /LPF (0-3); URINE RBC 3-10 Few /HPF (0-2); URINE WBC-REFLEX >25 Many /HPF (0-5)
[2018-03-20] MEDS ORDERED: PERCOCET 5-3251 EACH PO (21:43)
[2018-03-20] MEDS ORDERED: ZOFRAN ODT4 MG PO (21:43)
[2018-03-20 22:16] VITALS: BP 113/45
[2018-03-21] MEDS ORDERED: KEFLEX500 M1 PO (18:17)
[2018-03-21] MEDS ORDERED: ZOFRAN ODT4 MG PO (18:17)
== END 2018-03-20 22:21 | disposition home or self-care (01) ==
LOC: ER 18:21
PROVIDERS: Emergency Medicine
DX: R10.9 Unspecified abdominal pain (principal); F11.10 Opioid abuse, uncomplicated; G89.4 Chronic pain syndrome; M79.7 Fibromyalgia; F41.9 Anxiety disorder, unspecified; F31.9 Bipolar disorder, unspecified; F43.10 Post-traumatic stress disorder, unspecified; Z90.710 Acquired absence of both cervix and uterus; Z86.718 Personal history of other venous thrombosis and embolism; Z87.442 Personal history of urinary calculi; Z88.1 Allergy status to other antibiotic agents; Z88.2 Allergy status to sulfonamides; Z88.8 Allergy status to other drugs, medicaments and biological substances

== ENCOUNTER 2018-03-21 11:48 | Emergency (ER) | payer OTHER ==
[~2018-03-21] VITALS: Ht 177.8 cm; Wt 68.5 kg
--- NOTE | ~2018-03-21 | EKG ---
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
[2018-03-21 12:41] LABS: URINE BILIRUBIN NEGATIVE (Negative); URINE BLOOD 1+ (Negative); URINE CLARITY CLEAR; URINE COLOR YELLOW; URINE GLUCOSE-RANDOM* NEGATIVE (Negative); URINE KETONES NEGATIVE (Negative); URINE NITRITE-REFLEX NEGATIVE (Negative); URINE PROTEIN (DIPSTICK) NEGATIVE (Negative); URINE UROBILINOGEN 0.2 E.U./dl (0.2-1.0)
[2018-03-21 12:42] LABS: URINE LEUKOCYTES-REFLEX 3+ (Negative)
[2018-03-21 12:47] LABS: SQUAMOUS >10 Many /LPF (0-3)
[2018-03-21 12:48] LABS: CRYSTALS None Seen /LPF (None Seen); RENAL EPITHELIAL CELLS 0-3 Few /LPF (None Seen); TRANSITIONAL EPITHEL CELL 0-3 Few /LPF (None Seen); URINE WBC-REFLEX 6-15 Few /HPF (0-5)
[2018-03-21 12:49] LABS: CASTS None Seen /LPF (None Seen); URINE RBC 3-10 Few /HPF (0-2)
[2018-03-21 13:08] LABS: ABSOLUTE NEUTROPHILS 5.3 thou/uL (1.4-8.2); BASOPHILS 0.8 % (0.0-2.0); EOSINOPHILS 0.3 % (0.0-3.0); HEMOGLOBIN 14.8 gm/dL (12.0-15.0); LYMPHOCYTES 24.2 % (24.0-44.0); MCH 32.6 pg (26.0-34.0); MCHC 34.4 g/dL (28.0-37.0); MCV 94.8 fL (80.0-100.0); MONOCYTES 7.5 % (1.0-8.0); PLATELET COUNT 174 thou/uL (150-400); POLYS 67.2 % (36.0-66.0); RBC 4.54 mil/uL (4.20-5.00); RDW 13.8 % (10.5-14.5); WBC 7.9 thou/uL (4.0-11.0)
[2018-03-21 13:28] LABS: ANION GAP 12 mmol/L (7-16); BUN 14 mg/dL (7-18); CALCIUM 9.4 mg/dL (8.5-10.1); CHLORIDE 107 mmol/L (98-107); CO2 25 mmol/L (21-32); GLUCOSE 104 mg/dL (74-106); POTASSIUM 3.8 mmol/L (3.5-5.1); SODIUM 144 mmol/L (136-145)
[2018-03-21 13:36] LABS: ALBUMIN 3.7 g/dL (3.4-5.0); LIPASE 102 U/L (73-393); SGOT 21 U/L (15-37); SGPT 22 U/L (30-65); TOTAL BILIRUBIN 0.8 mg/dL (<0.1-1.0); TOTAL PROTEIN 7.5 g/dL (6.4-8.2); TROPONIN-I <0.06 ng/mL (<0.06)
[2018-03-21] MEDS ORDERED: KEFLEX500 M1 PO (18:17)
[2018-03-21] MEDS ORDERED: ZOFRAN ODT4 MG PO (18:17)
[2018-03-21 18:49] VITALS: BP 98/45
== END 2018-03-21 19:09 | disposition home or self-care (01) ==
LOC: ER 11:48
PROVIDERS: Student in an Organized Health Care Education/Training Program
DX: N39.0 Urinary tract infection, site not specified (principal); G89.4 Chronic pain syndrome; F31.9 Bipolar disorder, unspecified; F43.10 Post-traumatic stress disorder, unspecified; M79.7 Fibromyalgia; Z90.710 Acquired absence of both cervix and uterus; Z86.718 Personal history of other venous thrombosis and embolism; Z87.442 Personal history of urinary calculi; Z88.1 Allergy status to other antibiotic agents; Z88.2 Allergy status to sulfonamides; Z88.8 Allergy status to other drugs, medicaments and biological substances

== ENCOUNTER 2018-08-13 22:09 | Emergency (ER) | payer OTHER ==
[~2018-08-13] VITALS: Ht 177.8 cm; Wt 69.4 kg
[~2018-08-13 22:09] MED LIST changes: +KEFLEX500 M1 PO
[2018-08-13 22:45] LABS: URINE BILIRUBIN NEGATIVE (Negative); URINE BLOOD 1+ (Negative); URINE CLARITY CLEAR; URINE COLOR YELLOW; URINE GLUCOSE-RANDOM* NEGATIVE (Negative); URINE KETONES TRACE (Negative); URINE LEUKOCYTES-REFLEX NEGATIVE (Negative); URINE NITRITE-REFLEX NEGATIVE (Negative); URINE PROTEIN (DIPSTICK) NEGATIVE (Negative)
[2018-08-13 23:07] LABS: BACTERIA-REFLEX None Seen /HPF (None Seen); CASTS None Seen /LPF (None Seen); CRYSTALS None Seen /LPF (None Seen); MUCUS 0-3 Light strn/LPF (None Seen); SQUAMOUS 0-3 Few /LPF (0-3); URINE RBC 0-2 Rare /HPF (0-2); URINE WBC-REFLEX None Seen /HPF (0-5)
[2018-08-13 23:30] LABS: ABSOLUTE NEUTROPHILS 3.9 thou/uL (1.4-8.2); BASOPHILS 0.5 % (0.0-2.0); EOSINOPHILS 0.7 % (0.0-3.0); HEMATOCRIT 38.8 % (37.0-47.0); HEMOGLOBIN 13.1 gm/dL (12.0-15.0); LYMPHOCYTES 35.6 % (24.0-44.0); MCH 32.4 pg (26.0-34.0); MCHC 33.9 g/dL (28.0-37.0); MCV 95.7 fL (80.0-100.0); MONOCYTES 7.1 % (1.0-8.0); PLATELET COUNT 160 thou/uL (150-400); POLYS 56.1 % (36.0-66.0); RBC 4.05 mil/uL (4.20-5.00); RDW 13.6 % (10.5-14.5)
[2018-08-13 23:34] LABS: CALCIUM 9.2 mg/dL (8.5-10.1); CREATININE 0.9 mg/dL (0.6-1.0); POTASSIUM 3.8 mmol/L (3.5-5.1)
[2018-08-13 23:40] LABS: DIRECT BILIRUBIN 0.1 mg/dL (<0.1-0.3); TOTAL BILIRUBIN 0.4 mg/dL (<0.1-1.0); TOTAL PROTEIN 7.7 g/dL (6.4-8.2)
[2018-08-14 05:11] VITALS: BP 119/46
== END 2018-08-14 05:12 | disposition short-term general hospital (02) ==
LOC: ER 22:09
PROVIDERS: Emergency Medicine
DX: N20.1 Calculus of ureter (principal); G43.A1 Cyclical vomiting, in migraine, intractable; G89.29 Other chronic pain; M79.7 Fibromyalgia; Z90.710 Acquired absence of both cervix and uterus; Z86.718 Personal history of other venous thrombosis and embolism; Z87.442 Personal history of urinary calculi; Z88.1 Allergy status to other antibiotic agents; Z88.2 Allergy status to sulfonamides; Z88.8 Allergy status to other drugs, medicaments and biological substances

== ENCOUNTER 2018-10-29 01:02 | Emergency (ER) | payer OTHER ==
[~2018-10-29] VITALS: Ht 177.8 cm; Wt 69.4 kg
[2018-10-29 01:51] LABS: ABSOLUTE NEUTROPHILS 9.6 thou/uL (1.4-8.2); BASOPHILS 0.6 % (0.0-2.0); EOSINOPHILS 0.2 % (0.0-3.0); HEMATOCRIT 39.8 % (37.0-47.0); HEMOGLOBIN 13.6 gm/dL (12.0-15.0); LYMPHOCYTES 8.8 % (24.0-44.0); MCH 32.2 pg (26.0-34.0); MCHC 34.2 g/dL (28.0-37.0); MONOCYTES 3.5 % (1.0-8.0); PLATELET COUNT 219 thou/uL (150-400); POLYS 86.9 % (36.0-66.0); RBC 4.23 mil/uL (4.20-5.00); RDW 14.8 % (10.5-14.5)
[2018-10-29 01:59] LABS: CALCIUM 9.7 mg/dL (8.5-10.1); CREATININE 1.1 mg/dL (0.6-1.0); POTASSIUM 4.2 mmol/L (3.5-5.1)
[2018-10-29 02:22] LABS: URINE BILIRUBIN NEGATIVE (Negative); URINE BLOOD 2+ (Negative); URINE CLARITY CLEAR; URINE COLOR ORANGE; URINE GLUCOSE-RANDOM* TRACE (Negative); URINE KETONES 1+ (Negative); URINE LEUKOCYTES-REFLEX NEGATIVE (Negative); URINE PROTEIN (DIPSTICK) 2+ (Negative); URINE SPECIFIC GRAVITY <= 1.005 (1.005-1.035)
[2018-10-29 02:24] LABS: URINE NITRITE-REFLEX POSITIVE (Negative)
[2018-10-29 02:30] LABS: SQUAMOUS 0-3 Few /LPF (0-3); URINE WBC-REFLEX 6-15 Few /HPF (0-5)
[2018-10-29 02:31] LABS: CASTS None Seen /LPF (None Seen); CRYSTALS None Seen /LPF (None Seen); MUCUS 0-3 Light strn/LPF (None Seen)
[2018-10-29 07:45] VITALS: BP 100/47
== END 2018-10-29 07:45 ==
LOC: ER 01:02
PROVIDERS: Emergency Medicine
DX: N39.0 Urinary tract infection, site not specified (principal); R11.2 Nausea with vomiting, unspecified; F41.9 Anxiety disorder, unspecified; F31.9 Bipolar disorder, unspecified; M79.7 Fibromyalgia; M41.9 Scoliosis, unspecified; G89.4 Chronic pain syndrome; M19.90 Unspecified osteoarthritis, unspecified site; Z96.0 Presence of urogenital implants; Z88.1 Allergy status to other antibiotic agents; Z88.8 Allergy status to other drugs, medicaments and biological substances; Z88.2 Allergy status to sulfonamides; Z90.710 Acquired absence of both cervix and uterus; Z86.718 Personal history of other venous thrombosis and embolism; Z87.442 Personal history of urinary calculi

== ENCOUNTER 2018-12-09 17:58 | Inpatient (IN) | payer OTHER ==
[~2018-12-09] VITALS: Ht 177.8 cm; Wt 68.0 kg
[2018-12-09 17:59] VITALS: BP 151/86
[2018-12-09 18:14] LABS: URINE BLOOD 2+ (Negative); URINE CLARITY SL CLOUDY; URINE COLOR YELLOW; URINE GLUCOSE-RANDOM* NEGATIVE (Negative); URINE KETONES TRACE (Negative); URINE NITRITE-REFLEX NEGATIVE (Negative); URINE PROTEIN (DIPSTICK) 1+ (Negative); URINE SPECIFIC GRAVITY >= 1.030 (1.005-1.035); URINE UROBILINOGEN 0.2 E.U./dl (0.2-1.0)
[2018-12-09 18:20] LABS: URINE LEUKOCYTES-REFLEX 3+ (Negative)
[2018-12-09 18:22] LABS: ICTOTEST (BILI CONFIRMATORY) Negative (Negative); URINE BILIRUBIN NEGATIVE (Negative)
[2018-12-09 18:32] LABS: CASTS None Seen /LPF (None Seen); CRYSTALS None Seen /LPF (None Seen); SQUAMOUS None Seen /LPF (0-3); URINE RBC 3-10 Few /HPF (0-2); URINE WBC-REFLEX >25 Many /HPF (0-5); WBC CLUMPS Many (None Seen)
[2018-12-09 20:52] LABS: BASOPHILS 1.2 % (0.0-2.0); EOSINOPHILS 0.8 % (0.0-3.0); HEMATOCRIT 46.5 % (37.0-47.0); HEMOGLOBIN 15.6 gm/dL (12.0-15.0); LYMPHOCYTES 36.8 % (24.0-44.0); MCH 31.9 pg (26.0-34.0); MCHC 33.6 g/dL (28.0-37.0); MCV 94.8 fL (80.0-100.0); PLATELET COUNT 175 thou/uL (150-400); POLYS 56.2 % (36.0-66.0); RBC 4.91 mil/uL (4.20-5.00); RDW 14.2 % (10.5-14.5); WBC 7.2 thou/uL (4.0-11.0)
[2018-12-09 20:59] LABS: CALCIUM 9.1 mg/dL (8.5-10.1)
--- NOTE | 2018-12-09 21:15 | NUR ---
PATIENT TO CT AT THIS TIME
[2018-12-09] MEDS ORDERED: TRAMADOL 50 MG50 MG PO (21:25)
[2018-12-09] MEDS ORDERED: CIPRO500 MG PO (21:25)
[2018-12-09] MEDS ORDERED: ONDANSETRON HCL4 M2 PO (21:27)
[2018-12-09 23:46] VITALS: BP 119/66
[2018-12-09 23:56] VITALS: BP 119/54
--- NOTE | 2018-12-09 23:56 | NUR ---
REPORT TO INPATIENT NURSEGAURAV.
[2018-12-10 00:23] VITALS: BP 120/65
[2018-12-10] MEDS ORDERED: OXYCONTIN10 M1 PO (01:08)
[2018-12-10] MEDS ORDERED: ACCUNEB SO1.25 MG/1 INH (01:11)
[2018-12-10 04:15] VITALS: BP 113/66
--- NOTE | 2018-12-10 05:36 | NUR ---
PATIENT IS ALERT AND ORIENTED. PATIENT IS SBA. PATIENTS PAIN IS CONTROLLED WITH PAIN MEDICAITON. 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 PATIENT HAS SOME ANXIETY. PATIENT IS ON ROOM AIR. PATIENT IS RESTING COMFORTABLY IN BED. WCM. PATIENT IS PROGRESSING TO GOALS.
[2018-12-10 07:28] VITALS: BP 110/66
[2018-12-10 13:28] VITALS: BP 128/77
--- NOTE | 2018-12-10 15:52 | NUR ---
PT ADMITTED RELATED TO UTI. CM REVEIWED CHART AND SPOKE WITH CARE TEAM. CM MET WITH PT AT BEDSIDE THIS DAY. PT IS A&O X4. CM ROLE INTRODUCED. PT INDICATED SHE HAS BEEN STAYING IN A HOUSE WITH HER SISTER AND NEPHEW. 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 PT INDICATED THAT SHE HAD HH IN THE PAST AND BEEN SKILLED BUT SHE CAN'T REMEMBER THE NAMES OF THE PROVIDERS OR FACILITIES. PT INDICATED HER PCP IS DR. LANCE HARKINS. SHE INDICATED THAT SHE PLANS TO RETURN TO HER DUPLEX UPON DC. PT'S CONTACT IS HER SON ALBERTO VICKERS . CM TO FOLLOW INDICATED WITH DC PLANNING.
--- NOTE | 2018-12-10 18:11 | NUR ---
ASSUMED CARE OF PATIENT AT 0715, PATIENT ALERT AND ORIENTED X 4. PATIENT UP WITH SBA. PATIENT HAS C/O PAIN MOST OF THE SHIFT, DR ANTONIO HERE THIS AM, HE DISCONTINUE MORPHINE, SHE HAS OXYCODONE 10 MG FOR PAIN STILL ORDERED, AND RECEIVED EARLY THIS AFTERNOON, WITH VERY PARTIAL RELIEF. PATIENT C/O ANXIETY, XANAX 1 MG PO GIVEN WITH GOOD RELIEF AND SHE RECEIVED SCHEDULED FLEXIRIL 10 MG PO WITH GOOD RELIEF ALSO. PATIENT UPSET MOST OF THE DAY, SHE CALLED PATIENT ADVOCATE X 3 TIMES, THIS RN NOTIFIED LASHICHLOE/NURSE CUSTOMER RESOLUTION SPECIALIST TO SPEAK WITH THE PATIENT. PATIENT STATED SHE WANTED TO CHANGE DOCTORS, THIS RN NOTIFIED DR ANTONIO OF PATIENT NEEDING MORE PAIN MEDS AND THAT SHE WANTED TO CHANGE DOCTORS, RECEIVED ORDER FOR TORADOL 15 MG IV EVERY 4 HOURS/PRN PAIN LEVEL 6-10. PATIENT'S IV HAS INFILTRATED AFTER IV TEAM PLACED, WAITING FOR IV TEAM TO COME RESTART, JO-ANN STATES SHE WAS UNABLE TO OBTAIN, WILL HAVE ANOTHER IV INTERVENTIONAL NEURORADIOLOGIST COME AND TRY TO START. PATIENT HAS C/O NAUSEA X 2, NO BREAKFAST, SMALL AMT OF LUNCH, NO EMESIS THIS SHIFT. PATIENT C/O PAIN WITH LEFT LOWER BACK, RADIATING TO LOWER ABDOMEN, WE ARE TREATING UTI, IV ANTIBIOTICS WILL START AT 2100. WILL CONTINUE TO MONITOR. COME REINSERT
--- NOTE | 2018-12-10 20:36 | NUR ---
VASCULAR ACCESS CONSULTED FOR THIS PT. HER PIV THAT WAS PLACED WITH US PRIOR IN THE DAY WAS NOT PATENT. A 4FRMIDLINE WAS PLACED IN HER RUABASILIC AND HAD A BRISK BLOOD RETURN. PLEASE SEE INSERTION NOTE FOR DETAILS ON PROCEDURE. PT WAS VERY ANXIOUS AND UPSET THAT HER BACK PAIN WAS NOT CONTROLLED. WHEN ML WAS PLACED PT WOULD BE ABLE TO GET IV TORODOL IN ADDITION TO THE REST OF HER PRN MEDS. JAKE CROOK WAS NOTIFIED OF THE DELAY IN IV ACCESS.
--- NOTE | 2018-12-10 22:30 | NUR ---
Pt. observed to have increased anxiety and was having pain in left flank. She was given pain meds and xanax (see emar) with no relief. Pt. requested to see the LEGAL COMPLIANCE OFFICER as she feels nothing is being done to control her pain. She is very weepy. She is also c/o chronic nausea and has been refusing her meds be- cause she feels nauseated. Call placed to Sarah BROWN.
--- NOTE | 2018-12-10 23:00 | NUR ---
Sarah BROWN returned my phone call and updated on pt. c/o no pain relief. KEVIN will come and visit with the pt.
--- NOTE | 2018-12-10 23:45 | NUR ---
Sarah KEVIN came to the unit and talked to pt. about her pain. New orders placed (see cpoe).
--- NOTE | 2018-12-11 01:10 | NUR ---
Pt. was given her scheduled pain med (see emar). She is anxious with many flighty ideas. Expressed to this nurse that medicaid pt. are always the first to be booted out of hospitals. Pt. did not want to take her phenergan po nausea med as she prefers the iv one. Explained to the pt. that with your chronic nausea, Sarah BROWN wants you to try the po med. She can become arguementative at times about her medications. Pt. did take the po phener- raine.
--- NOTE | 2018-12-11 07:15 | NUR ---
Pt. rested very little during the shift. C/o left flank pain and was given pain meds (see emar) with no relief voiced. Getting heating pad this am.
[2018-12-11] MEDS ORDERED: CEFUROXIME500 MG PO (09:51)
[2018-12-11 10:12] VITALS: BP 128/77
--- NOTE | 2018-12-11 12:44 | NUR ---
CM WAS NOTIFIED THAT CARE TEAM INDICATED PT IS MEDICALLY STABLE TO DISHARGE THIS DAY. PT INDICATED THAT SHE WANTED TO APPEAL HER DISCHARGE. DC PAPERWORK WAS GIVEN TO THE PT ALONE WITH THE LETTER FROM MEDICARE. PT CALLED [facility] AND INITIATED APPEAL PROCESS. CM RECIEVED CALL FROM [place] CALLED [facility] THE Where I've Been MANAGING THE APPEAL WITH NOTICE OF DOCUMENTION THAT THEY REQUEST. CM PROVIDED NOTICE TO MEDICAL RECORDS WITH A COPY OF THE SIGNED LETTER FROM MEDICARE. CM NOTIFIED PT THAT THE APPEAL PROCESS IS IN PROGRESS AND THAT WE WILL KEEP HER UPDATED. CM TO FOLLOW INDICATED WITH DC PLANNING.
[2018-12-11 12:46] LABS: HEMATOCRIT 35.9 % (37.0-47.0); MCH 32.3 pg (26.0-34.0); MCHC 34.4 g/dL (28.0-37.0); MCV 94.1 fL (80.0-100.0); RBC 3.82 mil/uL (4.20-5.00); RDW 13.4 % (10.5-14.5); WBC 2.9 thou/uL (4.0-11.0)
--- NOTE | 2018-12-11 12:49 | NUR ---
TOWARDS POC PT A/O X4, VSS, AFEBRILE. PT IS FRUSTRATED ABOUT THE CARE SHE IS GETTING. PT IS DC TODAY BUT APPEALED FOR HER DC. PT REFUSED PO MEDS. WILL CONTINUE TO MONITOR.
[2018-12-11 12:56] LABS: CALCIUM 8.1 mg/dL (8.5-10.1); CREATININE 0.9 mg/dL (0.6-1.0); MAGNESIUM 1.6 mg/dL (1.8-2.4); POTASSIUM 3.7 mmol/L (3.5-5.1)
[2018-12-11 13:03] LABS: HEMOGLOBIN 12.3 gm/dL (12.0-15.0)
[2018-12-11 15:11] VITALS: BP 108/53
[2018-12-12 04:03] VITALS: BP 118/60
[2018-12-12 05:20] LABS: ABSOLUTE NEUTROPHILS 1.9 thou/uL (1.4-8.2); BASOPHILS 0.6 % (0.0-2.0); EOSINOPHILS 1.3 % (0.0-3.0); HEMATOCRIT 37.3 % (37.0-47.0); HEMOGLOBIN 12.6 gm/dL (12.0-15.0); LYMPHOCYTES 35.3 % (24.0-44.0); MCHC 33.9 g/dL (28.0-37.0); MCV 94.5 fL (80.0-100.0); MONOCYTES 9.8 % (1.0-8.0); PLATELET COUNT 128 thou/uL (150-400); RBC 3.95 mil/uL (4.20-5.00); RDW 13.6 % (10.5-14.5); WBC 3.6 thou/uL (4.0-11.0)
[2018-12-12 05:46] LABS: CALCIUM 8.5 mg/dL (8.5-10.1); MAGNESIUM 1.9 mg/dL (1.8-2.4); POTASSIUM 3.9 mmol/L (3.5-5.1)
--- NOTE | 2018-12-12 05:54 | NUR ---
ASSUMED CARE OF PT AT 1900HRS. PT IS AOX4 AND LETS NEEDS BE KNOWN. PT COMPLAINED OF N/V AND PAIN THROUGHOUT THE SHIFT AND WAS TREATED WITH PRN MEDS. PT REPORTED PATIAL RELIEF FROM PRN MEDS. NO OTHER S/S OF ACUTE DISTRESS. WILL CONTINUE TO MONITOR.
[2018-12-12 07:53] VITALS: BP 108/52
--- NOTE | 2018-12-12 10:07 | NUR ---
CM RECEIVED FAX FROM [employer] OF [employer] APPEAL ACKNOWLEDGEMENT, THE CASE ID IS [id number]. CM CONTACTED NUMBER LISTED IN ATTEMPTS TO SEE HOW LONG IT WILL BE UNTIL A DECISION IS MADE AND WHICH NUMBER THEY WILL CONTACT ONCE THEY HAVE DETERMINATION. CM PROVIDED CONTACT INFO. CM WILL CONTINUE TO FOLLOW TO ASSIST NEEDED.
--- NOTE | 2018-12-12 14:29 | NUR ---
PT VS STABLE. PT HAS C/O PAIN AND NAUSEA THROUGHOUT SHIFT. NO EMESIS, TREATED WITH PAIN AND NAUSEA MEDICATIONS, BOTH OF WHICH OFFERED PARTIAL RELIEF. PT RESTING BUT CALLS FREQUENTLY FOR MEDICATION. WILL CONTINUE TO MONITOR.
[2018-12-12 15:00] VITALS: BP 171/81
[2018-12-12 15:05] LABS: URINE BILIRUBIN NEGATIVE (Negative); URINE BLOOD TRACE (Negative); URINE CLARITY CLEAR; URINE COLOR YELLOW; URINE GLUCOSE-RANDOM* NEGATIVE (Negative); URINE KETONES NEGATIVE (Negative); URINE LEUKOCYTES-REFLEX NEGATIVE (Negative); URINE NITRITE-REFLEX NEGATIVE (Negative); URINE PROTEIN (DIPSTICK) NEGATIVE (Negative); URINE UROBILINOGEN 0.2 E.U./dl (0.2-1.0)
[2018-12-12 15:49] VITALS: BP 117/60
[2018-12-12 16:56] VITALS: BP 117/60
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
[2018-12-12 19:18] VITALS: BP 91/43
--- NOTE | 2018-12-13 03:16 | NUR ---
ASSUMED CARE OF PT AT 1900HRS. PT IS AOX4 AND LETS NEEDS BE KNOWN. PT COMPLAINED OF N/V AND PAIN, AND PRN MEDICATIONS WERE USED. PT WAS ABLE TO GET COMFORTABLE AND SLEEP PART OF THE SHIFT. NO OTHER S/S OF ACUTE DISTRESS. WILL CONTINUE TO MONITOR.
[2018-12-13 04:57] VITALS: BP 95/40
[2018-12-13 08:00] VITALS: BP 96/77
[2018-12-13 15:00] VITALS: BP 116/60
--- NOTE | 2018-12-13 17:34 | NUR ---
PT STABLE THROUGHOUT SHIFT. PT CONTINUES TO C/O PAIN AND PAIN MEDS PROVIDE PARTIAL RELIEF. PT C/O HEARTBURN, OBTAINED ORDER FOR MYLANTA WHICH PROVIDED RELIEF. PT RESTING COMFORTABLY.
[2018-12-13 19:12] VITALS: BP 107/59
--- NOTE | 2018-12-14 01:50 | NUR ---
ASSUMED CARE OF PT AT 1900HRS. PT IS AOX4 AND LETS NEEDS BE KNOWN. FALL PRECAUTION IN PLACE. PT COMPLAINED OF N/V AND PAIN AND WAS TREATED WITH PRN MEDS. PT WAS ABLE TO GET COMFORTABE AND SLEEP PART OF THE SHIFT. NO OTHER S/S OF ACUTE DISTRESS. WILL CONTINUE TO MONITOR.
[2018-12-14 07:26] VITALS: BP 101/50
[2018-12-14 14:13] LABS: HEMOGLOBIN 14.1 gm/dL (12.0-15.0); RBC 4.4 mil/uL (4.20-5.00)
[2018-12-14 14:15] LABS: HEMATOCRIT 41.2 % (37.0-47.0); MCHC 34.2 g/dL (28.0-37.0); MCV 93.6 fL (80.0-100.0); RDW 13.4 % (10.5-14.5)
[2018-12-14 14:16] LABS: WBC 1.8 thou/uL (4.0-11.0)
[2018-12-14 14:27] LABS: CREATININE 0.9 mg/dL (0.6-1.0); MAGNESIUM 1.7 mg/dL (1.8-2.4); POTASSIUM 3.7 mmol/L (3.5-5.1)
[2018-12-14 14:38] VITALS: BP 96/62
--- NOTE | 2018-12-14 17:08 | NUR ---
SEEMS VERY ANXIOUS TODAY YET SLEEPY. CLOSES EYES WHILE TALKING APPEARS TO BE FALLING ASLEEP. C/O PAIN EVERYTIME ASSESSED AND ASKS WHAT MEDS SHE CAN HAVE. FAIR APPETITE. RIGHT UPPER ARM MIDLINE INTACT. [facility] WBC 1.[address] BRYAN. UP TO BR WITH SLOW STEADY GAIT. NO EDEMA OR SKIN BREAKDOWN.
[2018-12-14 19:07] VITALS: BP 103/59
--- NOTE | 2018-12-15 01:35 | NUR ---
ASSUMED CARE OF PT AT 1900HRS PT IS AOX4 AND LETS NEEDS BE KNOWN. PT COMPLAINED OF N/V AND PAIN AND WAS TREATED WITH PRN PAIN MEDS. PT WALKED THE HALLWAY THIS SHIFT. PT WAS ABLE TO GET COMFORTABLE AND SLEEP PART OF THE SHIFT. NO OTHER S/S OF ACUTE DISTRESS. WILL CONTINUE TO MONITOR.
[2018-12-15 05:53] LABS: CALCIUM 9.3 mg/dL (8.5-10.1); MAGNESIUM 1.6 mg/dL (1.8-2.4); POTASSIUM 3.8 mmol/L (3.5-5.1)
[2018-12-15 05:57] LABS: HEMATOCRIT 41.3 % (37.0-47.0)
[2018-12-15 05:59] LABS: HEMOGLOBIN 14.2 gm/dL (12.0-15.0); MCH 32.2 pg (26.0-34.0); MCHC 34.3 g/dL (28.0-37.0); RBC 4.4 mil/uL (4.20-5.00); RDW 13.4 % (10.5-14.5)
[2018-12-15 06:04] LABS: WBC 1.8 thou/uL (4.0-11.0)
[2018-12-15 07:24] VITALS: BP 103/59
[2018-12-15 14:15] VITALS: BP 107/62
--- NOTE | 2018-12-15 17:58 | NUR ---
Pt bailee out of bed with assist x1.Assessment completed.vss.Medicated pt with both iv and po pain med with partial relief.Dr Reddy and Jyotsna here,order noted.Pt still in hospital related to low wbc.Pt will possibly dc home in am if stable.Will continue to monitor.
[2018-12-15 20:32] VITALS: BP 92/58
[2018-12-15 23:07] LABS: HEMOGLOBIN 14.2 g/dL (11.1-15.9)
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
[2018-12-16 04:56] LABS: HEMATOCRIT 41.6 % (37.0-47.0); HEMOGLOBIN 14.2 gm/dL (12.0-15.0); MCH 32.2 pg (26.0-34.0); MCHC 34.1 g/dL (28.0-37.0); MCV 94.2 fL (80.0-100.0); PLATELET COUNT 70 thou/uL (150-400); RBC 4.41 mil/uL (4.20-5.00); RDW 13.8 % (10.5-14.5)
[2018-12-16 04:58] LABS: WBC 1.9 thou/uL (4.0-11.0)
[2018-12-16 05:44] LABS: ABSOLUTE NEUTROPHILS 0.6 thou/uL (1.4-8.2); ANISOCYTOSIS 1+; PLATELET ESTIMATE DECREASED
[2018-12-16 05:45] LABS: POIKILOCYTOSIS 1+
[2018-12-16 07:34] VITALS: BP 93/49
--- NOTE | 2018-12-16 09:02 | NUR ---
late entry from 12/15: CM RECEIVED CALL FROM [facility] STATING THAT THEY AGREE WITH DECISION FOR PATIENT TO DISCHARGE. CM NOTIFIED ATTENDING PHYSICIAN IN THE AM OF THEIR DECISION. ATTENDING STATING HER WBC IS LOW AND HE WILL DICUSS WITH ID IF PATIENT IS STABLE TO DISCHARGE OR NOT. LULY REACHED OUT TO ATTENDING AT 1730 AND HE STATES PATIENTS WBC NEEDS TO BE MONITORED OVERNIGHT AND WILL SEE HOW SHE IS IN THE AM.
--- NOTE | 2018-12-16 10:48 | NUR ---
Nutrition: pt admitted with UTI and seen for LOS. Chart reviewed. Decreased appetite reported. < 30% of meals documented for a few days early in admit, 75-100% documented 12/14. Generally eats a late breakfast she reports due to nausea. Stable weights at 150#. Regular diet, understands how to order meals. Agrees to ensure daily due to variable intakes. Possible discharge today.
[2018-12-16 13:56] VITALS: BP 118/70
--- NOTE | 2018-12-16 16:35 | NUR ---
PT LOST HER APPEAL AND HER DC WAS UPDELD. PT'S WBC WAS ELEVATED SO SHE STAYED YESTERDAY NIGHT. CARE TEAM INDICATED THAT SHE IS NOW MEDICALLY STABLE TO DC HOME THIS DAY. PT HAS ARRANGED TRANSPORT VIA HER DTR. PT IS TO DC HOME TO SELF CARE. NO OTHER CM INTERVENTION INDICATED. CASE CLOSED.
[2018-12-16 16:36] VITALS: BP 128/77
--- NOTE | 2018-12-16 20:48 | NUR ---
PATIENT ALERT AND ORIENTED AND SLEEPING UNTIL ABOUT 1130. DURING AM MED PASS INDICATED SHE DIDN'T WANT HER MEDICATIONS UNTIL SHE ATE LUNCH SINCE SHE HAD SOME NAUSEA BUT DIDN'T WANT MEDICATIONS. PATIENT EXPRESSED CONCERN REGARDING HER DISCHARGE INDICATING SHE DID NOT HAVE A PRESCRIPTION FOR PAIN MEDICATION. THE HOSPITALIST INDICATED PATIENT IS BEING FOLLOWED BY A PRIMARY MD FOR PAIN MANAGEMENT. PATIENT DISCHARGED THIS AFTERNOON WITH ALL PERSONAL BELONGINGS AND DISCHARGE PAPERS INCLUDING ORDER TO RETURN FOR [facility] IN DECEMBER. PATIENT DISCHARGED WITH FRIEND AND THE FRIEND WOULD BE THE DENTAL TECHNOLOGY ADVISOR.
== END 2018-12-16 18:30 | disposition home or self-care (01) | DRG 689 ==
LOC: ER 17:58 → EROBS 23:22 → 4W 23:22 → ENTRNSPT 12-16 17:00 → 4W 12-16 18:30
PROVIDERS: Emergency Medicine; Internal Medicine; Nurse Practitioner Family; Specialist; ADMIT Hospitalist
DX: N39.0 Urinary tract infection, site not specified (principal); D61.811 Other drug-induced pancytopenia; F41.9 Anxiety disorder, unspecified; F31.9 Bipolar disorder, unspecified; F43.10 Post-traumatic stress disorder, unspecified; G89.4 Chronic pain syndrome; M19.90 Unspecified osteoarthritis, unspecified site; Z79.899 Other long term (current) drug therapy; Z88.1 Allergy status to other antibiotic agents; Z90.710 Acquired absence of both cervix and uterus; Z86.718 Personal history of other venous thrombosis and embolism; Z79.01 Long term (current) use of anticoagulants; Z79.1 Long term (current) use of non-steroidal anti-inflammatories (NSAID); Z88.2 Allergy status to sulfonamides; Z88.8 Allergy status to other drugs, medicaments and biological substances; Z88.6 Allergy status to analgesic agent
CPT/HCPCS: 10040; 27000

== ENCOUNTER 2019-05-22 14:14 | Emergency (ER) | payer OTHER ==
[~2019-05-22] VITALS: Ht 177.8 cm; Wt 68.5 kg
[~2019-05-22 14:14] MED LIST changes: +ACCUNEB SO1.25 MG/1 INH; +CEFUROXIME500 MG PO; +CIPRO500 MG PO
[2019-05-22 14:29] VITALS: BP 126/91
[2019-05-22] MEDS ORDERED: METRONIDAZOLE500 M4 PO (15:05)
== END 2019-05-22 15:00 | disposition home or self-care (01) ==
LOC: ER 14:14
DX: K04.7 Periapical abscess without sinus (principal); F32.9 Major depressive disorder, single episode, unspecified; F41.9 Anxiety disorder, unspecified; Z90.710 Acquired absence of both cervix and uterus; Z86.718 Personal history of other venous thrombosis and embolism; Z98.890 Other specified postprocedural states; Z85.53 Personal history of malignant neoplasm of renal pelvis; Z88.1 Allergy status to other antibiotic agents; Z88.2 Allergy status to sulfonamides; Z88.8 Allergy status to other drugs, medicaments and biological substances; Z88.5 Allergy status to narcotic agent

== ENCOUNTER 2019-05-22 22:22 | Emergency (ER) | payer OTHER ==
[~2019-05-22] VITALS: Ht 177.8 cm; Wt 68.5 kg
[~2019-05-22 22:22] MED LIST changes: +METRONIDAZOLE500 M4 PO
[2019-05-22 22:26] VITALS: BP 134/78
== END 2019-05-23 01:00 | disposition home or self-care (01) ==
LOC: ER 22:22
DX: K04.7 Periapical abscess without sinus (principal); F41.9 Anxiety disorder, unspecified; F32.9 Major depressive disorder, single episode, unspecified; Z90.710 Acquired absence of both cervix and uterus; Z86.718 Personal history of other venous thrombosis and embolism; Z87.442 Personal history of urinary calculi; Z90.5 Acquired absence of kidney; Z85.528 Personal history of other malignant neoplasm of kidney; Z88.1 Allergy status to other antibiotic agents; Z88.2 Allergy status to sulfonamides; Z88.5 Allergy status to narcotic agent; Z88.8 Allergy status to other drugs, medicaments and biological substances